=== PATIENT | male | born 1940 | race Caucasian/White ===

== ENCOUNTER 2017-06-28 | Inpatient (IN) | payer MEDICARE ==
[2017-06-28 00:53] LABS: BASO # 0.1 x10^3/uL (0.0-0.2); BASO % 1 % (0-3); EOS # 0.1 x10^3/uL (0.0-0.7); EOS % 0 % (0-3); HEMATOCRIT 42.7 % (39.0-53.0); HEMOGLOBIN 13.7 g/dL (13.0-17.5); LYMPH # 0.8 x10^3/uL (1.0-4.8); LYMPH % 4 % (24-48); MEAN CORPUSCULAR HEMOGLOBIN 27 pg (25-35); MEAN CORPUSCULAR HGB CONC 32 g/dL (31-37); MEAN CORPUSCULAR VOLUME 83 fL (79-100); MONO # 1.1 x10^3/uL (0.0-1.1); MONO % 5 % (0-9); NEUT # 18.5 x10^3uL (1.8-7.7); NEUT % 90 % (31-73); PLATELET COUNT 222 x10^3/uL (140-400); RED BLOOD COUNT 5.15 x10^6/uL (4.30-5.70); RED CELL DISTRIBUTION WIDTH 16.7 % (11.5-14.5); WHITE BLOOD COUNT 20.5 x10^3/uL (4.0-11.0)
[2017-06-28 00:54] LABS: ADD MAN DIFF? YES
[2017-06-28 01:04] LABS: ANION GAP 8 (6-14); BLOOD UREA NITROGEN 17 mg/dL (8-26); BUN/CREATININE RATIO 11 (6-20); CALCIUM 9.6 mg/dL (8.5-10.1); CARBON DIOXIDE 29 mmol/L (21-32); CHLORIDE 96 mmol/L (98-107); CREATININE 1.5 mg/dL (0.7-1.3); GFR 45.6; GLUCOSE 190 mg/dL (70-99); POTASSIUM 4.5 mmol/L (3.5-5.1); SODIUM 133 mmol/L (136-145)
[2017-06-28 01:10] LABS: ALBUMIN 3.5 g/dL (3.4-5.0); ALBUMIN/GLOBULIN RATIO 0.8 (1.0-1.7); ALK PHOS 40 U/L (46-116); ALT (SGPT) 23 U/L (16-63); AST (SGOT) 19 U/L (15-37); TOTAL PROTEIN 7.8 g/dL (6.4-8.2)
[2017-06-28 01:14] LABS: LACTIC ACID 1.7 mmol/L (0.4-2.0)
[2017-06-28] MEDS: IBUPROFEN 400 MG TABLET. PO (01:15)
[2017-06-28] MEDS: ACETAMINOPHEN 325 MG TABLET. PO ×3 (01:15→22:19)
[2017-06-28] MEDS: IV NORMAL SALINE 500ML BAG 500 ML IV ×3 (01:16→09:00)
[2017-06-28 01:43] LABS: BILIRUBIN,URINE NEGATIVE (NEG); CLARITY,URINE CLEAR; COLOR,URINE YELLOW; GLUCOSE,URINE 100 mg/dL (NEG); NITRITE,URINE NEGATIVE (NEG); PROTEIN,URINE 30 mg/dL (NEG-TRACE)
[2017-06-28 01:52] LABS: BACTERIA,URINE 0 /HPF (0-FEW); SQUAMOUS EPITHELIAL CELL,UR FEW /LPF
[2017-06-28 01:59] LABS: % BANDS 4 % (0-9); % LYMPHS 2 % (24-48); % METAS 1 % (0-0); % MONOS 5 % (0-10); % SEGS 88 % (35-66); ANISOCYTOSIS SLIGHT; NUCLEATED RBC 1; PLT ESTIMATE ADEQUATE (ADEQUATE); POLYCHROMASIA SLIGHT
[2017-06-28 02:01] LABS: INFLUENZA A PATIENT NEGATIVE (NEGATIVE); INFLUENZA B PATIENT NEGATIVE (NEGATIVE); OBC FLU VALID
[2017-06-28] MEDS ORDERED: fentaNYL PF VIAL 100 MCG/2 ML VIAL IV (02:30)
[2017-06-28] MEDS ORDERED: ONDANSETRON PF 4 MG/2 ML VIAL. IV (02:30)
[2017-06-28] MEDS ORDERED: AMPICILLIN/SULBACTAM 3 GM in IV NORMAL SALINE 100ML 100 ML IV ×2 (02:30→18:00)
[2017-06-28] MEDS: IV NORMAL SALINE 1000ML BAG 1,000 ML IV ×2 (02:52→03:35)
[2017-06-28] MEDS: AMPICILLIN/SULBACTAM IV Push 3 GM VIAL. IVP ×2 (02:54→17:39)
[2017-06-28] MEDS ORDERED: NOREPINEPHRIN PREMIX 250 ML IV (05:30)
[2017-06-28 05:52] LABS: LACTIC ACID 0.9 mmol/L (0.4-2.0)
[2017-06-28] MEDS ORDERED: INFLUENZA VAX SCREEN BY RX. MC (08:00)
[2017-06-28] MEDS: ENOXAPARIN 40 MG/0.4 ML SYRINGE. SQ (17:46)
[2017-06-28] MEDS: INSULIN DETEMIR 300 UNITS/3 ML INSULN.PEN. SQ (21:08)
[2017-06-28 21:13] LABS: POC GLUCOSE 112 mg/dL (70-99)
[2017-06-28 21:13] LABS: MRSA BY PCR Negative (Negative)
[2017-06-29] MEDS: AMPICILLIN/SULBACTAM IV Push 3 GM VIAL. IVP ×4 (00:11→18:13)
[2017-06-29 05:27] LABS: ADD MAN DIFF? NO
[2017-06-29 05:35] LABS: BASO # 0.1 x10^3/uL (0.0-0.2); BASO % 0 % (0-3); EOS # 0.1 x10^3/uL (0.0-0.7); EOS % 0 % (0-3); HEMATOCRIT 42.6 % (39.0-53.0); HEMOGLOBIN 13.5 g/dL (13.0-17.5); LYMPH # 1.1 x10^3/uL (1.0-4.8); LYMPH % 8 % (24-48); MEAN CORPUSCULAR HEMOGLOBIN 27 pg (25-35); MEAN CORPUSCULAR HGB CONC 32 g/dL (31-37); MEAN CORPUSCULAR VOLUME 83 fL (79-100); MONO # 1.2 x10^3/uL (0.0-1.1); MONO % 8 % (0-9); NEUT # 11.9 x10^3uL (1.8-7.7); NEUT % 83 % (31-73); PLATELET COUNT 175 x10^3/uL (140-400); RED CELL DISTRIBUTION WIDTH 17.1 % (11.5-14.5); WHITE BLOOD COUNT 14.3 x10^3/uL (4.0-11.0)
[2017-06-29 05:49] LABS: ALBUMIN/GLOBULIN RATIO 0.7 (1.0-1.7); ALK PHOS 35 U/L (46-116); ALT (SGPT) 20 U/L (16-63); ANION GAP 10 (6-14); AST (SGOT) 29 U/L (15-37); BLOOD UREA NITROGEN 15 mg/dL (8-26); BUN/CREATININE RATIO 13 (6-20); CALCIUM 9.3 mg/dL (8.5-10.1); CARBON DIOXIDE 27 mmol/L (21-32); CHLORIDE 98 mmol/L (98-107); CREATININE 1.2 mg/dL (0.7-1.3); GLUCOSE 108 mg/dL (70-99); SODIUM 135 mmol/L (136-145); TOTAL PROTEIN 7.4 g/dL (6.4-8.2)
[2017-06-29] MEDS: LINEZOLID 600 MG TABLET PO (08:32)
[2017-06-29] MEDS: MICAFUNGIN 100 MG in IV DEXTROSE 5% 100 ML IV (08:33)
[2017-06-29] MEDS ORDERED: FLUCONAZOLE 100 MG TABLET. PO (09:00)
[2017-06-29] MEDS: HYDROcodone/APAP 7.5/325MG 1 TAB TABLET PO (13:42)
[2017-06-29] MEDS: FLU VACC QS2017-18 (36MOS+)/PF 0.5 ML SYRINGE. VAX IM (13:43)
[2017-06-29] MEDS: ENOXAPARIN 40 MG/0.4 ML SYRINGE. SQ (17:00)
[2017-06-29] MEDS ORDERED: LACTOBACILLUS RHAMNOSUS GG 1 CAPSULE. PO (21:00)
== END 2017-06-30 | disposition short-term general hospital (02) | DRG 871 ==
LOC: ER → 1 WEST ICU 02:19
DX: A41.9 Sepsis, unspecified organism (principal); N17.0 Acute kidney failure with tubular necrosis; E11.22 Type 2 diabetes mellitus with diabetic chronic kidney disease; E11.42 Type 2 diabetes mellitus with diabetic polyneuropathy; E11.51 Type 2 diabetes mellitus with diabetic peripheral angiopathy without gangrene; B35.9 Dermatophytosis, unspecified; I48.0 Paroxysmal atrial fibrillation; I05.0 Rheumatic mitral stenosis; N17.9 Acute kidney failure, unspecified; L03.115 Cellulitis of right lower limb; L97.919 Non-pressure chronic ulcer of unspecified part of right lower leg with unspecified severity; L97.929 Non-pressure chronic ulcer of unspecified part of left lower leg with unspecified severity; E11.622 Type 2 diabetes mellitus with other skin ulcer; E11.65 Type 2 diabetes mellitus with hyperglycemia; I25.10 Atherosclerotic heart disease of native coronary artery without angina pectoris; E86.0 Dehydration; E78.5 Hyperlipidemia, unspecified; J44.9 Chronic obstructive pulmonary disease, unspecified; K21.9 Gastro-esophageal reflux disease without esophagitis; N18.9 Chronic kidney disease, unspecified; I12.9 Hypertensive chronic kidney disease with stage 1 through stage 4 chronic kidney disease, or unspecified chronic kidney disease; Z86.73 Personal history of transient ischemic attack (TIA), and cerebral infarction without residual deficits; Z82.49 Family history of ischemic heart disease and other diseases of the circulatory system; Z87.891 Personal history of nicotine dependence
CPT/HCPCS: 36415; 71045; 80053; 81001; 82962; 83605; 85007; 85025; 87040; 87641; 87804; 87804-59; 90686; 93925; 93971; 96361; 96374; 99291; 99291-25; J0295; J1650; J1815; J2248; J7030; J7040

== ENCOUNTER 2018-06-23 18:58 | Emergency (ER) | payer MEDICARE ==
[~2018-06-23] VITALS: Ht 180.3 cm; Wt 103.0 kg
[~2018-06-23 18:58] MED LIST: ASPI1CPM PO; CANA100T PO; CARV12.511 PO; CARV6.2511 PO; CHOL20002 PO; CLOP75TA PO; DULO30CA2 PO; ENAL10TA PO; ENAL20TA PO; HYDR-2765 PO; HYDR12.58 PO; INSU100I13 SQ; INSU100I17 SQ; LEVO1CAP3 PO; METF10007 PO; OMEG500C3 PO; OMEP20TA8 PO; OMEP40CA5 PO; POTA20TA4 PO; SIMV40TA3 PO; SPIR25TA PO; TAMS0.4C97 PO; TEST200V32 IM
[2018-06-23] MEDS ORDERED: diazePAM 5 MG TABLET PO ONE (19:30)
[2018-06-23] MEDS ORDERED: HYDROcodone/APAP 5/325MG 1 TAB TABLET PO ONE (19:30)
--- NOTE | 2018-06-23 19:33 | PHYS DOC ---
Past Medical History Past Medical History: CAD, Diabetes-Type II (MALIA CASTRO APRN) Additional Past Surgical Histo: LEG VEIN SURGERIES (MALIA CASTRO APRN) Alcohol Use: None Drug Use: None (MALIA CASTRO APRN) Adult General Chief Complaint Chief Complaint: MECHANICAL FALL HPI HPI Patient is a 78 year old male with history of diabetes type 2, CAD, on hospice , who presents today to be evaluated status post falling. Patient states he was carrying some heavy items walking on his drive way when he fall. Patient denies any loss of consciousness. He states he fell back hitting his head on the ground he is complaining of posterior scalp pain, and upper back/neck pain and right shoulder pain. He states he is on a blood thinner, patient unable to remember the name of the blood thinner. Patient states he doesn't believe he passed out but he cannot remember the event very well. (MALIA CASTRO APRN) Review of Systems Review of Systems Constitutional: Denies fever or chills [] Eyes: Denies change in visual acuity, redness, or eye pain [] HENT: Denies nasal congestion or sore throat [] Respiratory: Denies cough or shortness of breath [] Cardiovascular: No additional information not addressed in HPI [] GI: Denies abdominal pain, nausea, vomiting, bloody stools or diarrhea [] : Denies dysuria or hematuria [] Musculoskeletal:reports neck/back pain and right shoulder pain Integument: Denies rash or skin lesions [] Neurologic: Reports posterior neck pain, denies focal weakness or sensory changes [] All other systems were reviewed and found to be within normal limits, except as documented in this note. (MALIA CASTRO APRN) Current Medications Current Medications Current Medications Medications (Trade) Dose Ordered Sig/Marvin Start Time Stop Time Status Last Admin Dose Admin Acetaminophen/ Hydrocodone Bitart (Lortab 5/325) 2 tab 1X ONCE 06/23/18 19:30 06/23/18 19:31 DC 06/23/18 19:43 2 TAB Diazepam (Valium) 5 mg 1X ONCE 06/23/18 19:30 06/23/18 19:31 DC 06/23/18 19:43 5 MG (SAULO KUO APRN) Allergies Allergies Allergies Coded Allergies Type Severity Reaction Last Updated Verified No Known Drug Allergies 10/20/15 No (DEVORAHKULWANT MillerWarren Ware APRN) Physical Exam Physical Exam Constitutional: Well developed, well nourished, no acute distress, non-toxic appearance. [] HENT: Normocephalic, atraumatic, bilateral external ears normal, oropharynx moist, no oral exudates, nose normal. [] Eyes: PERRLA, EOMI, conjunctiva normal, no discharge. [] Neck: Normal range of motion, mild paraspinal tenderness on palpation of posterior cervical spine including midline posterior cervical spine tenderness, supple, no stridor. [] Cardiovascular:Heart rate regular rhythm, no murmur [] Lungs & Thorax: Bilateral breath sounds clear to auscultation [] Abdomen: Bowel sounds normal, soft, no tenderness, no masses, no pulsatile masses. [] Male :Aguero catheter in place Skin: Warm, dry, no erythema, no rash. [] Back: No tenderness, no CVA tenderness. [] Extremities: No tenderness, no cyanosis, no clubbing, ROM intact, LLE is in a boot. Neurologic: Posterior occipital with a mild sized contusion. Alert and oriented X 3, normal motor function, normal sensory function, no focal deficits noted. Cranial nerves II through XII intact. Psychologic: Affect normal, judgement normal, mood normal. [] (MALIA CASTRO APRN) Current Patient Data Vital Signs Vital Signs Date Time Temp Pulse Resp B/P (MAP) Pulse Ox O2 Delivery O2 Flow Rate FiO2 06/23/18 22:01 100 24 96 06/23/18 19:43 Room Air 06/23/18 19:24 98.0 123/59 (80) 98.0 (SJPATRICIAKULWANT MillerWarren Ware APRN) Lab Values Laboratory Tests Test 06/23/18 20:20 Urine Collection Type Unknown Urine Color Yellow Urine Clarity Turbid Urine pH 6.0 Urine Specific [place] >=1.030 Urine Protein 30 mg/dL (NEG-TRACE) Urine Glucose (UA) >=1000 mg/dL (NEG) Urine Ketones (Stick) Negative mg/dL (NEG) Urine Blood Large (NEG) Urine Nitrite Positive (NEG) Urine Bilirubin Negative (NEG) Urine Urobilinogen Dipstick 0.2 mg/dL (0.2 mg/dL) Urine Leukocyte Esterase Moderate (NEG) Urine RBC Tntc /HPF (0-2) Urine WBC Tntc /HPF (0-4) Urine Squamous Epithelial Cells None /LPF Urine Bacteria Many /HPF (0-FEW) Urine Mucus Slight /LPF Urine Yeast Present /HPF (DEVORAHAngelaSAULO APRN) EKG EKG [] (GIAMALIA MCKINNEY APRN) Radiology/Procedures Radiology/Procedures [] (MATTHEWMALIA APRN) Radiology/Procedures PROCEDURE: SHOULDER 2+V RIGHT Three-view right shoulder dated 06/23/2018. No comparison available. Clinical data indication: Pain after fall today. FINDINGS: 3 views right shoulder show normal bony alignment. No displaced fracture. No acute osseous or articular abnormality. Mild hypertrophic change at the AC joint. IMPRESSION: 1. No acute radiographic abnormality. Electronically signed by: Ti Burleson MD (06/23/2018 8:19 PM) [facility] [place] DICTATED and SIGNED BY: TI BURLESON MD DATE: 06/23/182017 PROCEDURE: CT HEAD AND CERVICAL SPINE WO EXAM: CT HEAD WITHOUT IV CONTRAST CLINICAL HISTORY: fall, HIT BACK OF HEAD AROUND 1800 THIS EVENING. COMPARISON: None. TECHNIQUE: Routine CT of the head without contrast. Soft tissues and bone windows were reviewed. PQRS compliance statement - One or more of the following individualized dose reduction techniques were utilized for this study: 1. Automated exposure control 2. Adjustment of the mA and/or kV according to patient size 3. Use of iterative reconstruction technique FINDINGS: There is no evidence of hemorrhage, mass or extra-axial fluid collection. Wright-white differentiation is maintained with no evidence of edema. There is no mass effect or shift of the intracranial structures. The ventricles, basilar cisterns and cortical sulci are normal in size and configuration for the patients stated age. The cerebellum and brainstem are unremarkable. The calvarium demonstrates no evidence of fracture or focal lesion. There is normal aeration of the visualized paranasal sinuses and mastoid air cells. The visualized portions of the orbits are normal. Moderate soft tissue swelling overlying the right posterior parietal region, consistent with subgaleal/scalp hematoma. IMPRESSION: 1. Scalp hematoma in the right posterior parietal region. 2. No evidence for acute intracranial process EXAM: CT CERVICAL SPINE WITHOUT IV CONTRAST CLINICAL HISTORY: fall, HIT BACK OF HEAD AROUND 1800 THIS EVENING. COMPARISON: None available. TECHNIQUE: Helical CT of the cervical spine was performed. Axial, coronal and sagittal reformatted images were also performed. PQRS compliance statement - One or more of the following individualized dose reduction techniques were utilized for this study: 1. Automated exposure control 2. Adjustment of the mA and/or kV according to patient size 3. Use of iterative reconstruction technique FINDINGS: Vertebral body heights are preserved. No evidence for fracture. Straightening of the normal cervical lordosis. No spondylolisthesis severe C4-5, C5-6, C6-7, C7-T1 and T1-T2 intervertebral disc height loss with small anterior posterior endplate osteophytes. There is also suggestion of congenital canal narrowing most prominent at C4-C7. C2-C3: No significant central canal stenosis or neural foraminal narrowing C3-C4: Small posterior disc osteophyte complex with facet degenerative change and uncovertebral hypertrophy results in mild central canal stenosis, mild left neural foraminal narrowing and moderate to severe right neural foraminal narrowing. C4-C5: Posterior disc osteophyte complex, facet degenerative changes and uncovertebral hypertrophy results in moderate central canal stenosis, moderate to severe bilateral neural foraminal narrowing. C5-C6: Posterior disc osteophyte complex with facet degenerative changes and ligamentum flavum hypertrophy results in moderate to severe central canal stenosis and moderate bilateral neural foraminal narrowing. C6-C7: Posterior disc osteophyte complex and facet degenerative changes and uncovertebral hypertrophy results in moderate to severe central canal stenosis and moderate bilateral neural foraminal narrowing C7-T1: Posterior disc osteophyte complex with uncovertebral hypertrophy and mild facet degenerative changes results in moderate central canal stenosis and mild bilateral neural foraminal narrowing. IMPRESSION: 1. Multilevel degenerative changes as above 2. No evidence for acute fracture or subluxation. Electronically signed by: Jasvir Restrepo MD (06/23/2018 8:03 PM) [facility] DICTATED and SIGNED BY: JASVIR RESTREPO MD DATE: 06/23/181955 (REFFITTSAULO APRN) Course & Med Decision Making Course & Med Decision Making Pertinent Labs and Imaging studies reviewed. (See chart for details) This is a 78-year-old male patient presenting to the ED today to be evaluated status post falling. Patient was carrying some items into the house when he fell. No loss of consciousness. Complaining of head contusion, right shoulder pain, neck/upper back pain. 1956 Care transferred to [facility] PM (MALIA CASTRO APRN) Course & Med Decision Making 2000: Assumed care of patient- he remains A&Ox3 with family at bedside. CT/ xrays and UA pending. Pt was provided with medications prior to this provider's care with pt reporting improvement in pain. Pt was evaluated in the ER after a fall this evening. Pt had c/o head contusion/ rt shoulder pain/neck/upper back pain and received dose of [place]/Valium prior to this provider assuming care- which he reports has improved his pain. Discussed imaging/test results with pt and his family. Discussed UTI results and patient reported that he was given prescription today for antibiotics as he had urinalysis earlier which showed he had a UTI. Patient has prescription and plans to get started on that medication. Pt remains alert and oriented 3 and in no visible distress at time of discussion on results and home discharge plan. Pt and his family are comfortable with home discharge as they have nurses who come to their home to check on pt thru hospice. Education provided on s&s to return to ER for and discharge instructions were discussed. Pt remains PMS in rt upper extremity with full ROM of neck. Pt has appt with doctor scheduled on Monday which will provide f/u and re-eval. (SAULO KUO APRN) Dragon Disclaimer Dragon Disclaimer This electronic medical record was generated, in whole or in part, using a voice recognition dictation system. (MALIA CASTRO APRN) Departure Departure Impression: Primary Impression: Fall from standing Additional Impressions: Scalp contusion Right shoulder injury Urinary tract infection Disposition: HOME, SELF-CARE Condition: STABLE Referrals: CAREN FLOREZ MD (PCP) Patient Instructions: Catheter-Associated Urinary Tract Infection FAQs - DELEON, Contusion, Fall Prevention and Home Safety, Head Injury, Adult, Shoulder Pain Additional Instructions: As discussed if the antibiotics that you were provided for your urinary tract infection. Slow position changes and usual walker to prevent falls. Keep scheduled appointment on Monday for reevaluation and discussion emergency department visit with your doctor. Continue home medications as previously prescribed. Problem Qualifiers Primary Impression: Fall from standing Encounter type: initial encounter Qualified Codes: W19.XXXA - Unspecified fall, initial encounter Additional Impressions: Scalp contusion Encounter type: initial encounter Qualified Codes: S00.03XA - Contusion of scalp, initial encounter MALIA CASTRO APRN Jun 23, 2018 19:32 SAULO KUO APRN Jun 23, 2018 20:32
--- NOTE | 2018-06-23 20:07 | RAD ---
EXAM: CT HEAD WITHOUT IV CONTRAST CLINICAL HISTORY: fall, HIT BACK OF HEAD AROUND 1800 THIS EVENING. COMPARISON: None. TECHNIQUE: Routine CT of the head without contrast. Soft tissues and bone windows were reviewed. PQRS compliance statement - One or more of the following individualized dose reduction techniques were utilized for this study: 1. Automated exposure control 2. Adjustment of the mA and/or kV according to patient size 3. Use of iterative reconstruction technique FINDINGS: There is no evidence of hemorrhage, mass or extra-axial fluid collection. Wright-white differentiation is maintained with no evidence of edema. There is no mass effect or shift of the intracranial structures. The ventricles, basilar cisterns and cortical sulci are normal in size and configuration for the patients stated age. The cerebellum and brainstem are unremarkable. The calvarium demonstrates no evidence of fracture or focal lesion. There is normal aeration of the visualized paranasal sinuses and mastoid air cells. The visualized portions of the orbits are normal. Moderate soft tissue swelling overlying the right posterior parietal region, consistent with subgaleal/scalp hematoma. IMPRESSION: 1. Scalp hematoma in the right posterior parietal region. 2. No evidence for acute intracranial process EXAM: CT CERVICAL SPINE WITHOUT IV CONTRAST CLINICAL HISTORY: fall, HIT BACK OF HEAD AROUND 1800 THIS EVENING. COMPARISON: None available. TECHNIQUE: Helical CT of the cervical spine was performed. Axial, coronal and sagittal reformatted images were also performed. PQRS compliance statement - One or more of the following individualized dose reduction techniques were utilized for this study: 1. Automated exposure control 2. Adjustment of the mA and/or kV according to patient size 3. Use of iterative reconstruction technique FINDINGS: Vertebral body heights are preserved. No evidence for fracture. Straightening of the normal cervical lordosis. No spondylolisthesis severe C4-5, C5-6, C6-7, C7-T1 and T1-T2 intervertebral disc height loss with small anterior posterior endplate osteophytes. There is also suggestion of congenital canal narrowing most prominent at C4-C7. C2-C3: No significant central canal stenosis or neural foraminal narrowing C3-C4: Small posterior disc osteophyte complex with facet degenerative change and uncovertebral hypertrophy results in mild central canal stenosis, mild left neural foraminal narrowing and moderate to severe right neural foraminal narrowing. C4-C5: Posterior disc osteophyte complex, facet degenerative changes and uncovertebral hypertrophy results in moderate central canal stenosis, moderate to severe bilateral neural foraminal narrowing. C5-C6: Posterior disc osteophyte complex with facet degenerative changes and ligamentum flavum hypertrophy results in moderate to severe central canal stenosis and moderate bilateral neural foraminal narrowing. C6-C7: Posterior disc osteophyte complex and facet degenerative changes and uncovertebral hypertrophy results in moderate to severe central canal stenosis and moderate bilateral neural foraminal narrowing C7-T1: Posterior disc osteophyte complex with uncovertebral hypertrophy and mild facet degenerative changes results in moderate central canal stenosis and mild bilateral neural foraminal narrowing. IMPRESSION: 1. Multilevel degenerative changes as above 2. No evidence for acute fracture or subluxation. Electronically signed by: Jasvir Lang MD (06/23/2018 8:03 PM) [facility]
--- NOTE | 2018-06-23 20:23 | RAD ---
Three-view right shoulder dated 06/23/2018. No comparison available. Clinical data indication: Pain after fall today. FINDINGS: 3 views right shoulder show normal bony alignment. No displaced fracture. No acute osseous or articular abnormality. Mild hypertrophic change at the AC joint. IMPRESSION: 1. No acute radiographic abnormality. Electronically signed by: Ti Burleson MD (06/23/2018 8:19 PM) [facility]
[2018-06-23 20:29] LABS: BILIRUBIN,URINE NEGATIVE (NEG); CLARITY,URINE TURBID; COLOR,URINE YELLOW; NITRITE,URINE POSITIVE (NEG); PROTEIN,URINE 30 mg/dL (NEG-TRACE); UROBILINOGEN,URINE 0.2 mg/dL (0.2 mg/dL)
[2018-06-23 20:34] LABS: BACTERIA,URINE MANY /HPF (0-FEW); RBC,URINE TNTC /HPF (0-2); WBC,URINE TNTC /HPF (0-4); YEAST,URINE PRESENT /HPF
[2018-06-23 22:01] VITALS: BP 124/88
== END 2018-06-23 22:12 | disposition home or self-care (01) ==
LOC: ER 18:58
DX: S00.03XA Contusion of scalp, initial encounter (principal); S49.81XA Other specified injuries of right shoulder and upper arm, initial encounter; N39.0 Urinary tract infection, site not specified; M54.6 Pain in thoracic spine; M54.2 Cervicalgia; E11.9 Type 2 diabetes mellitus without complications; I25.10 Atherosclerotic heart disease of native coronary artery without angina pectoris; W18.39XA Other fall on same level, initial encounter; Y93.89 Activity, other specified; Y92.89 Other specified places as the place of occurrence of the external cause; Y99.8 Other external cause status
CPT/HCPCS: 70450; 72125; 73030; 81001; 87086; 99282; 99284-25